=== PATIENT | male | born 1980 | race Caucasian/White ===

== ENCOUNTER 2019-11-10 10:12 | Inpatient (IN) | payer OTHER ==
[~2019-11-10] VITALS: Ht 177.8 cm; Wt 127.0 kg
[2019-11-10 11:00] LABS: BILIRUBIN NEGATIVE (NEGATIVE); GLUCOSE NEGATIVE (NEGATIVE); KETONE NEGATIVE (NEGATIVE); NITRITE NEGATIVE (NEGATIVE); SPECIFIC GRAVITY 1.015 (1.005-1.020); UROBILINOGEN NORMAL (NORMAL)
[2019-11-10 11:01] LABS: CALC OSMOLALITY 279 mosm/kg (275-300); CALCIUM 8.9 mg/dL (8.5-10.1); CARBON DIOXIDE 22.5 mmol/L (21.0-32.0); CHLORIDE - SERUM 106 mmol/L (98-107); GLUCOSE 107 mg/dL (74-106); POTASSIUM - SERUM 3.6 mmol/L (3.5-5.1); SODIUM 139 mmol/L (136-145); UREA NITROGEN 17 mg/dL (7-18); eGFR NON AFRICAN AMERICAN 88 mL/min (90-120)
[2019-11-10 11:05] LABS: HEMOGLOBIN 15.1 g/dL (13.5-17.5); LYMPHOCYTES 22.4 % (15-50); MCH 29.3 pg (26.0-34.0); MCHC 32.8 g/dL (31.0-37.0); MCV 89.1 fL (80.0-100.0); MEAN PLATELET VOLUME 9.1 fL (7.4-10.4); NEUTROPHILS 70.1 % (40-80); PLATELET COUNT 343 10x3/uL (130-400); RBC 5.16 10x6/uL (4.20-6.10); RDW 12.9 % (11.5-14.5); WBC 9.2 10x3/uL (4.8-10.8)
[2019-11-10 11:09] LABS: ALKALINE PHOSPHATASE 74 U/L (30-120); ALT (SGPT) 35 U/L (10-68); AMYLASE - SERUM 36 U/L (25-115); BILIRUBIN - TOTAL 0.36 mg/dL (0.2-1.3); LIPASE 147 U/L (73-393); PROTEIN - SERUM 7.3 g/dL (6.4-8.2); TROPONIN-I < 0.017 ng/mL (0.000-0.060)
[2019-11-10 12:27] VITALS: BP 141/79
[2019-11-10 13:32] VITALS: BP 132/69
[2019-11-10 14:33] VITALS: BP 141/71
--- NOTE | 2019-11-10 14:41 | NUR ---
REPORT CALLED TO MEL TUCKER
--- NOTE | 2019-11-10 14:42 | NUR ---
LEVAQUIN 500 MG 100 ML/HR INFUSING ON 11/10/19 WITH PATIENT ON TRANSFER TO FLOOR.
--- NOTE | 2019-11-10 14:44 | NUR ---
NS INFUSING WITH PT ON TRANSFER TO FLOOR ON 11/10/19 AT 100 ML/HR
[2019-11-10 16:00] VITALS: BP 137/73; BMI 40.2
[2019-11-10 17:39] VITALS: BP 95/57
[2019-11-10 21:48] VITALS: BP 138/72
[2019-11-11 01:07] VITALS: BP 120/76
[2019-11-11 05:59] LABS: ALBUMIN 3.2 g/dL (3.4-5.0); ALKALINE PHOSPHATASE 75 U/L (30-120); BILIRUBIN - TOTAL 0.49 mg/dL (0.2-1.3); CALC OSMOLALITY 276 mosm/kg (275-300); CARBON DIOXIDE 23.4 mmol/L (21.0-32.0); CHLORIDE - SERUM 105 mmol/L (98-107); CREATININE - SERUM 0.9 mg/dL (0.6-1.3); GLUCOSE 88 mg/dL (74-106); POTASSIUM - SERUM 3.7 mmol/L (3.5-5.1); PROTEIN - SERUM 6.4 g/dL (6.4-8.2); SODIUM 139 mmol/L (136-145); UREA NITROGEN 13 mg/dL (7-18); eGFR NON AFRICAN AMERICAN > 90 mL/min (90-120)
[2019-11-11 06:00] VITALS: BP 112/82
[2019-11-11 06:12] LABS: ALT (SGPT) 95 U/L (10-68)
[2019-11-11 07:39] LABS: BASOPHILS 0.4 % (0-2); EOSINOPHILS 1.3 % (0-7); HEMOGLOBIN 13.8 g/dL (13.5-17.5); IMMATURE GRANULOCYTES 0.3 % (0-5); LYMPHOCYTES 21.1 % (15-50); MCH 29.7 pg (26.0-34.0); MCHC 32.1 g/dL (31.0-37.0); MEAN PLATELET VOLUME 9.6 fL (7.4-10.4); MONOCYTES 6.2 % (2-11); NEUTROPHILS 70.7 % (40-80); PLATELET COUNT 317 10x3/uL (130-400); RBC 4.64 10x6/uL (4.20-6.10); RDW 13.2 % (11.5-14.5); WBC 7.6 10x3/uL (4.8-10.8)
[2019-11-11 07:40] LABS: MCV 92.7 fL (80.0-100.0)
--- NOTE | 2019-11-11 08:15 | NUR ---
PATIENT LAYING ON BACK IN BED. NO NEEDS AT THIS TIME. CL IN REACH. WCTM
[2019-11-11 09:12] VITALS: BP 117/70
[2019-11-11 13:06] VITALS: BP 119/68
--- NOTE | 2019-11-11 13:59 | NUR ---
PATIENT WAITING FOR [facility] TO TAKE A SHOWER. FAMILY IN ROOM. NO FURTHER NEEDS AT THIS TIME. CL IN REACH. TM
[2019-11-11 14:22] VITALS: Ht 177.8 cm; Wt 127.0 kg
[2019-11-11] MEDS ORDERED: LEVOFLOXAC500 MG/100 IV (14:26)
[2019-11-11] MEDS ORDERED: FLAGYL500 MG PO (14:27)
[2019-11-11] MEDS ORDERED: ZOFRAN ODT4 MG/UDTAB PO (14:27)
[2019-11-11] MEDS ORDERED: PROTONIX40 MG PO (14:27)
--- NOTE | 2019-11-11 14:45 | MORECARE ---
CASE MANAGEMENT DISCHARGE SUMMARY PATIENT: ROCAEL LOPEZ UNIT: [id number] ADM DATE: 11/10/19 AGE: 39 : [birth year] SEX: M ROOM/BED: D.2238 AUTHOR: MAXI MELGOZA PHYSICIAN: REFERRING PHYSICIAN: TOVA NELSON MD DATE OF SERVICE: 11/11/19 Discharge Plan Patient Name: ROCAEL LOPEZ Facility: [facility]:[place] : 1980 Planned Disposition: Home Anticipated Discharge Date: 11/11/19 Discharge Date: Expected LOS: 1 Initial Reviewer: [email or web address] Initial Review Date: 11/11/2019 Generated: 11/11/19 3:45 pm Patient Name: ROCAEL LOPEZ Page [id number] at 1445 All edits/amendments must be made on the electronic document DICTATION DATE: 11/11/19 1445 STACKER AND SORTER OPERATOR: MADDIE 11/11/19 1445 RPT#: [id number] DC DATE: STATUS: ADM IN [facility] [address] [place] [address] END OF REPORT
--- NOTE | 2019-11-11 15:07 | MORECARE ---
CASE MANAGEMENT DISCHARGE SUMMARY PATIENT: ROCAEL LOPEZ UNIT: [id number] ADM DATE: 11/10/19 AGE: 39 : [birth year] SEX: M ROOM/BED: D.2238 AUTHOR: MAXI MELGOZA PHYSICIAN: REFERRING PHYSICIAN: TOVA NELSON MD DATE OF SERVICE: 11/11/19 Discharge Plan Patient Name: ROCAEL LOPEZ [facility] : 1980 Planned Disposition: Home Anticipated Discharge Date: 11/11/19 Discharge Date: Expected LOS: 1 Initial Reviewer: [email or web address] Initial Review Date: 11/11/2019 Generated: 11/11/19 4:07 pm DCPIA - Discharge Planning Initial Assessment Updated by [email or web address]: Marisela Huggins on 11/11/19 3:06 pm * Is the patient Alert and Oriented? Yes * How many steps to enter\exit or inside your home? 0/0 * PCP No PCP * [facility] [address] * Preadmission Environment Home with Family * ADLs Independent * Equipment None * List name and contact numbers for known caregivers / representatives who currently or will assist patient after discharge: Amber [facility] - [phone] * Verbal permission to speak to the caregivers and representatives has been obtained from the patient. Yes * Community resources currently utilized None * Additional services required to return to the preadmission environment? No * Can the patient safely return to the preadmission environment? Yes * Has this patient been hospitalized within the prior 30 days at any hospital? No Last DP export: 11/11/19 1:45 p Patient Name: ROCAEL LOPEZ Page 95857 at 1507 All edits/amendments must be made on the electronic document DICTATION DATE: 11/11/19 1507 PYROGLAZER: MADDIE 11/11/19 1507 RPT#: [id number] DC DATE: STATUS: ADM IN [facility] [address] [place] [address] END OF REPORT
--- NOTE | 2019-11-11 15:15 | MORECARE ---
CASE MANAGEMENT DISCHARGE SUMMARY PATIENT: ROCAEL LOPEZ UNIT: [id number] ADM DATE: 11/10/19 AGE: 39 : 78 SEX: M ROOM/BED: D.2238 AUTHOR: RHONADOC PHYSICIAN: REFERRING PHYSICIAN: TOVA NELSON MD DATE OF SERVICE: 11/11/19 Discharge Plan Patient Name: ROCAEL LOPEZ Facility: [facility]:[place] : 1980 Planned Disposition: Home Anticipated Discharge Date: 11/11/19 Discharge Date: Expected LOS: 1 Initial Reviewer: [email or web address] Initial Review Date: 11/11/2019 Generated: 11/11/19 4:14 pm Comments DCP- Discharge Planning Updated by [email or web address]: Marisela Huggins on 11/11/19 2:[address] Patient Name: ROCAEL LOPEZ Admission Status: ER Accout number: [id number] Admission Date: 11-10-2019 : 1980 Admission Diagnosis: Attending: TOVA NELSON Current LOS: 1 Anticipated DC Date: 11-11-2019 Planned Disposition: Home Primary Insurance: [facility] Discharge Planning Comments: CM met with patient to complete initial dc planning assessment. CM educated patient on the CM role and verbal consent given by patient to complete assessment. Patient lives at home with his . At discharge patient plans to return and feels this is a safe discharge. CM discussed availability of home health, rehab services, and medical equipment. Patient denied known discharge needs at this time. CM will continue to follow and will assist as needed with dc plans/needs. Manager Of Business: Marisela Huggins DCPIA - Discharge Planning Initial Assessment Updated by [email or web address]: Marisela Huggins on 11/11/19 3:06 pm * Is the patient Alert and Oriented? Yes * How many steps to enter\exit or inside your home? 0/0 * PCP No PCP * [facility] * Preadmission Environment Home with Family * ADLs Independent * Equipment None * List name and contact numbers for known caregivers / representatives who currently or will assist patient after discharge: Amber [facility] - [phone] * Verbal permission to speak to the caregivers and representatives has been obtained from the patient. Yes * Community resources currently utilized None * Additional services required to return to the preadmission environment? No * Can the patient safely return to the preadmission environment? Yes * Has this patient been hospitalized within the prior 30 days at any hospital? No Last DP export: 11/11/19 2:07 p Patient Name: ROCAEL LOPEZ Page [id number] at 1515 All edits/amendments must be made on the electronic document DICTATION DATE: 11/11/191513 INDUSTRIAL COMMERCIAL GROUNDSKEEPER: MADDIE 11/11/191513 RPT#: [id number] DC DATE: STATUS: ADM IN [facility] [address] [place] [address] END OF REPORT
--- NOTE | 2019-11-13 08:20 | MORECARE ---
CASE MANAGEMENT DISCHARGE SUMMARY PATIENT: ROCAEL LOPEZ UNIT: [id number] ADM DATE: 11/10/19 AGE: 39 : 78 SEX: M ROOM/BED: D.2238 AUTHOR: RHONADOC PHYSICIAN: REFERRING PHYSICIAN: TOVA NELSON MD DATE OF SERVICE: 11/13/19 Discharge Plan Patient Name: ROCAEL LOPEZ Facility: [facility]:[place] : 1980 Planned Disposition: Home Anticipated Discharge Date: 11/11/19 Discharge Date: 11/11/2019 Expected LOS: 1 Initial Reviewer: [email or web address] Initial Review Date: 11/11/2019 Generated: 11/13/19 9:19 am Comments DCP- Discharge Planning Updated by [email or web address]: Marisela Huggins on 11/11/19 2:[address] Patient Name: ROCAEL LOPEZ Admission Status: ER Accout number: [id number] Admission Date: 11-10-2019 : 1980 Admission Diagnosis: Attending: TOVA NELSON Current LOS: 1 Anticipated DC Date: 11-11-2019 Planned Disposition: Home Primary Insurance: [facility] Discharge Planning Comments: CM met with patient to complete initial dc planning assessment. CM educated patient on the CM role and verbal consent given by patient to complete assessment. Patient lives at home with his . At discharge patient plans to return and feels this is a safe discharge. CM discussed availability of home health, rehab services, and medical equipment. Patient denied known discharge needs at this time. CM will continue to follow and will assist as needed with dc plans/needs. Hand Sprayer: Marisela Huggins DCPIA - Discharge Planning Initial Assessment Updated by [email or web address]: Marisela Huggins on 11/11/19 3:06 pm * Is the patient Alert and Oriented? Yes * How many steps to enter\exit or inside your home? 0/0 * PCP No PCP * [facility] [address] * Preadmission Environment Home with Family * ADLs Independent * Equipment None * List name and contact numbers for known caregivers / representatives who currently or will assist patient after discharge: [phone] * Verbal permission to speak to the caregivers and representatives has been obtained from the patient. Yes * Community resources currently utilized None * Additional services required to return to the preadmission environment? No * Can the patient safely return to the preadmission environment? Yes * Has this patient been hospitalized within the prior 30 days at any hospital? No Last DP export: 11/11/19 2:15 p Patient Name: ROCAEL LOPEZ Page 11302 at 0820 All edits/amendments must be made on the electronic document DICTATION DATE: 11/13/19818 DOCK PUMPER: DM 11/13/19818 RPT#: [id number] DC DATE:11/11/19 STATUS: DIS IN [facility] [address] [place] [address] END OF REPORT
== END 2019-11-11 16:19 | disposition home or self-care (01) | DRG 392 ==
LOC: D.ER 10:12 → D.MS 14:02
PROVIDERS: Family Medicine; ADMIT Family Medicine; ATTEND Family Medicine
DX: K57.92 Diverticulitis of intestine, part unspecified, without perforation or abscess without bleeding (principal); F17.203 Nicotine dependence unspecified, with withdrawal

== ENCOUNTER 2020-01-18 11:03 | Emergency (ER) | payer OTHER ==
[~2020-01-18] VITALS: Ht 177.8 cm; Wt 127.3 kg
[~2020-01-18 11:03] MED LIST: FLAGYL500 MG PO; LEVOFLOXAC500 MG/100 IV; PROTONIX40 MG PO; ZOFRAN ODT4 MG/UDTAB PO
[2020-01-18 11:15] VITALS: BP 135/91; Ht 177.8 cm; Wt 127.3 kg
[2020-01-18 11:40] LABS: BILIRUBIN NEGATIVE (NEGATIVE); GLUCOSE NEGATIVE (NEGATIVE); KETONE NEGATIVE (NEGATIVE); NITRITE NEGATIVE (NEGATIVE); UROBILINOGEN NORMAL (NORMAL)
[2020-01-18 12:15] LABS: BASOPHILS 0.6 % (0-2); EOSINOPHILS 1.1 % (0-7); HEMATOCRIT 47.9 % (42.0-54.0); HEMOGLOBIN 15.8 g/dL (13.5-17.5); IMMATURE GRANULOCYTES 0.3 % (0-5); LYMPHOCYTES 29.5 % (15-50); MCH 29.8 pg (26.0-34.0); MCV 90.2 fL (80.0-100.0); MEAN PLATELET VOLUME 9.6 fL (7.4-10.4); MONOCYTES 6.5 % (2-11); PLATELET COUNT 321 10x3/uL (130-400); RBC 5.31 10x6/uL (4.20-6.10); WBC 7.2 10x3/uL (4.8-10.8)
[2020-01-18 12:22] LABS: CALC OSMOLALITY 276 mosm/kg (275-300); CALCIUM 8.8 mg/dL (8.5-10.1); CARBON DIOXIDE 22.7 mmol/L (21.0-32.0); CHLORIDE - SERUM 105 mmol/L (98-107); CREATININE - SERUM 1.1 mg/dL (0.6-1.3); GLUCOSE 92 mg/dL (74-106); POTASSIUM - SERUM 3.6 mmol/L (3.5-5.1); SODIUM 138 mmol/L (136-145); UREA NITROGEN 14 mg/dL (7-18); eGFR NON AFRICAN AMERICAN 78 mL/min (90-120)
[2020-01-18 12:30] LABS: ALKALINE PHOSPHATASE 71 U/L (30-120); ALT (SGPT) 39 U/L (10-68); AMYLASE - SERUM 53 U/L (25-115); BILIRUBIN - TOTAL 0.36 mg/dL (0.2-1.3); LIPASE 375 U/L (73-393); PROTEIN - SERUM 7.4 g/dL (6.4-8.2); TROPONIN-I < 0.017 ng/mL (0.000-0.060)
== END 2020-01-18 12:31 | disposition left against medical advice (07) ==
LOC: D.ER 11:03
PROVIDERS: Family Medicine
DX: R10.32 Left lower quadrant pain (principal); R19.7 Diarrhea, unspecified